=== PATIENT | female | born 1975 | race Caucasian/White ===

== ENCOUNTER 2016-07-09 13:32 | Emergency (ER) | payer OTHER ==
[~2016-07-09] VITALS: Ht 157.5 cm; Wt 76.7 kg
[~2016-07-09 13:32] MED LIST: ALBU1NEB10 NEB; ALBUAER2 INH; IMT100 PO; MONT1TAB3 PO; TRAZ50TA35 PO
[2016-07-09 13:44] VITALS: TEMP 37.2; Ht 157.5 cm; Wt 76.7 kg
[2016-07-09] MEDS ORDERED: OXYC1TAB3 PO (14:19)
[2016-07-09 14:30] VITALS: BP 138/78; PULSE 83; O2SAT 96
--- NOTE | 2016-07-09 19:21 | EMERGENCY ROOM VISIT NOTE ---
History First contact with patient: 14:13 Chief Complaint: DENTAL PAIN Stated Complaint: TOOTHACHE Nursing Triage Summary: pt states cracked tooth on right upper. right facial pain History of Present Illness The patient is a 41 year old female who presents to the Emergency Room with complaints of a cracked tooth that happened on Tyra, or 2 days ago. The patient reports that she was eating caramel corn. The patient reports that she has an appointment scheduled to see a dentist on Saturday. She tried to call her family doctor's weekend clinic and the [facility], and was told that they had a long wait time. She can no longer tolerate the discomfort, and presents to the emergency department for further evaluation. She rates her pain a 7 out of 10. Review of Systems 10 system review was performed and was negative except for pertinent positives and negatives as indicated in history of present illness Past Medical/Surgical History Medical Problems: (1) ASTHMA, UNSPECIFIED, W (ACUTE) EXACERBATION (2) History of cholecystectomy (3) HX-PENICILLIN ALLERGY (4) HX-SULFONAMIDES ALLERGY (5) Kidney stone (6) OVARIAN CYST NEC/NOS (7) TOBACCO USE DISORDER Family History Unremarkable Social History Smoking Status: Current Every Day Smoker Alcohol Use: none Drug Use: none Marital Status: in relationship Occupation Status: unemployed Current/Historical Medications Scheduled Clonazepam (Klonopin), 1 MG PO AMPM Fluticasone Prop/Salmeterol (Advair Diskus 500/50 60 Dose), 1 PUFF INH Q12 Montelukast Sodium (Singulair), 10 MG PO DAILY Scheduled PRN Albuterol (Ventolin), 2 PUFFS INH QID PRN for SOB/Wheezing Albuterol Sulf (Albuterol Sulfate 0.083% For Inh), 3 ML NEB QID PRN for SOB/ Wheezing Oxycodone Ir (Roxicodone Ir), 1-2 TAB PO Q4H PRN for Pain Sumatriptan Succinate (Imitrex Nasal [place]), 1 SPRAY NA UD PRN for Migraine Sumatriptan Succinate (Imitrex), 100 MG PO UD PRN for Migraine Allergies Coded Allergies: Nitrofurantoin (Verified Allergy, Intermediate, HIVES, 07/09/16) Doxycycline (Verified Allergy, Mild, 07/09/16) Sulfa Drugs (Verified Allergy, Mild, 07/09/16) Amoxicillin (Verified Allergy, Unknown, THROAT SWELLS, 07/09/16) Morphine (Verified Allergy, Unknown, bradycardia, 07/09/16) Penicillins (Verified Allergy, Unknown, AMOXIL, 07/09/16) Tramadol (Verified Allergy, Unknown, Triggers migraine., 07/09/16) Reported by PT. Gabapentin (Verified Adverse Reaction, Unknown, Nausea., 07/09/16) Reported by PT. Physical Exam Vital Signs Date Time Temp Pulse Resp B/P Pulse Ox O2 Delivery O2 Flow Rate FiO2 07/09/16 14:30 83 18 138/78 96 07/09/16 13:44 37.2 103 18 145/86 97 Room Air Pain Rating (0-10): 5.0 Physical Exam CONSTITUTIONAL: Healthy and well nourished. Alert and oriented X 3 with positive affect. HEENT: Normocephalic, atraumatic. Pupils equal, round and reactive. No facial edema noted. OROPHARYNX: The patient has poor dentition. I am unable to visualize a dental fracture of the right upper molars. There is no gingival erythema, fluctuance or pointing. No evidence for Jhon's angina or retropharyngeal abscess. NECK: Full active range of motion without discomfort. INTEGUMENTARY: No rash or other significant dermatologic conditions noted. NEUROLOGIC: Facial sensations are intact. Medical Decision & Procedures ED Course Patient history and physical exam were performed. The patient was dispensed a dental wax, and received a prescription for OxyIR 5 mg. She was encouraged to alternate ibuprofen and Tylenol for baseline pain relief. The patient was advised that she must follow-up with a dentist for further definitive treatment. She may also need to contact her PCP as needed for further pain management until she can see her dentist. The patient was advised that the emergency department does not provide dental services, referrals or ongoing prescription management. The patient was happy with plan of care, voiced understanding of all discharge instructions, and rated her pain a 5 out of 10 at the time of discharge. [place] Drug Monitoring Program Search Results: patient reviewed within database, no issues identified Impression Primary Impression: Pain, dental Departure Information Dispostion Home / Self-Care Condition GOOD Prescriptions Oxycodone Ir (Roxicodone Ir) 5 Mg Tab 1-2 TAB PO Q4H Y for Pain, #24 TAB For Initial Treatment Prov: Darryn Dillard PA 07/09/16 Forms HOME CARE DOCUMENTATION FORM, IMPORTANT VISIT INFORMATION Patient Instructions A Signature Page, [facility] Additional Instructions Use dental wax to cover the tooth and exposed nerve. Ibuprofen 800 mg and/or Tylenol 1000 mg every 8 hours. You may also alternate these medications for more effective pain relief: Ibuprofen --4 HRS--> Tylenol --4 HRS--> ibuprofen --4 HRS--> Tylenol .... OxyIR if needed for worse pain. Soft food/liquid diet. YOU MUST SEE A DENTIST FOR DEFINITIVE CARE. THE EMERGENCY DEPARTMENT DOES NOT PROVIDE DENTAL SERVICES, REFERRALS OR CHRONIC DENTAL PAIN MANAGEMENT. YOU MAY ALSO CALL YOUR FAMILY DOCTOR FOR PAIN MANAGEMENT UNTIL YOU SEE YOUR DENTIST.
[2017-03-30] MEDS ORDERED: ADVIN50/60 INH (12:48)
[2017-03-30] MEDS ORDERED: TRAZ50TA35 PO (15:50)
[2017-03-30] MEDS ORDERED: VALA1TAB31 PO (15:50)
[2017-03-30] MEDS ORDERED: VNTHFA/IN INH (15:50)
[2017-03-30] MEDS ORDERED: ACET-1256 PO (16:00)
[2017-03-30] MEDS ORDERED: IBUP-103 PO (16:00)
[2017-03-30] MEDS ORDERED: ALBINS/ NEB (16:00)
== END 2016-07-09 14:35 | disposition home or self-care (01) ==
LOC: C.EDB 13:34 → C.EDA 14:35
DX: K08.89 Other specified disorders of teeth and supporting structures (principal); F17.210 Nicotine dependence, cigarettes, uncomplicated; Z79.899 Other long term (current) drug therapy

== ENCOUNTER 2016-07-27 15:27 | Emergency (ER) | payer OTHER ==
[~2016-07-27] VITALS: Ht 157.5 cm; Wt 78.1 kg
[~2016-07-27 15:27] MED LIST changes: +OXYC1TAB3 PO; -TRAZ50TA35 PO
[2016-07-27 15:28] VITALS: BP 149/99; PULSE 76; TEMP 36.7; O2SAT 99; Ht 157.5 cm; Wt 78.1 kg
--- NOTE | 2016-07-27 15:54 | EMERGENCY ROOM VISIT NOTE ---
ED Visit Note First contact with patient: 15:32 CHIEF COMPLAINT: Toothache HISTORY OF PRESENT ILLNESS: This 41-year-old female patient presented to the emergency department ambulatory with a progressive toothache for past several weeks. The patient reports that she has several issues with her teeth. She saw a dentist today and was told that she needs a root canal and other work done on her teeth. She was prescribed clindamycin for infection. She states that the dentist told her she was not able to prescribe her any narcotics with the license that she had. The patient reports that most of her pain is in the right upper molars. She states that there is an exposed nerve and one of the teeth. She has an appointment to have the work done September 14 of this year. She 's been taking ibuprofen and Tylenol without relief. She has been to the ER previously for this pain. She reports that she does not have a primary care provider and has not followed up with anyone else regarding this pain. Denies facial swelling or fever. The patient denies any discharge from the mouth. REVIEW OF SYSTEMS: A 6 system review of systems was completed with positives and pertinent negatives listed in the HPI. ALLERGIES: Amoxicillin, doxycycline, morphine, nitrofurantoin, gabapentin, tramadol, penicillins, sulfa drugs MEDICATIONS: See med list PMH: Asthma SOCIAL HISTORY: The patient lives locally. She is a smoker. She denies alcohol use. PHYSICAL EXAM: Vitals are noted on the nurse's note and reviewed by myself. Vital signs stable. Temperature 36.7C orally. GENERAL: This is a 41-year-old female, in no acute distress, nondiaphoretic, well-developed well-nourished. Mouth: There is generalized poor dental hygiene with several dental caries, especially in the right upper molars. No drainage or signs of abscess. There is no significant erythema, edema or exudate. There is no facial swelling, cervical or submandibular lymphadenopathy. EARS: External auditory canals clear , tympanic membranes pearly sharma without erythema or effusion bilaterally. ED COURSE: The patient was evaluated as above. She does have several dental caries and brought with her records from the dentist that show she does have an appointment in 2 months. The patient initially told me that she did not have a primary care provider and did not have anyone else to go to for her pain. However, the [place] prescription drug monitoring program shows that the patient received a prescription for 21 tablets of oxycodone on 07/10/16, the day after she was seen here and prescribed 24 tablets of oxycodone. I did question the patient about this and she said that this was her primary care provider's office, but they stated that they would not give her any more narcotics for this. I Informed the patient that I am not comfortable prescribing any more narcotic medications for this problem. She was instructed to follow-up with her primary care provider and dentist. She was provided with dental wax. She was encouraged to take her antibiotic as prescribed. She was discharged home in good condition. DIAGNOSIS: Odontalgia Problem List Medical Problems: (1) ASTHMA, UNSPECIFIED, W (ACUTE) EXACERBATION Status: Chronic (2) History of cholecystectomy Status: Resolved (3) HX-PENICILLIN ALLERGY Status: Chronic (4) HX-SULFONAMIDES ALLERGY Status: Chronic (5) Kidney stone Status: Chronic (6) OVARIAN CYST NEC/NOS Status: Chronic (7) TOBACCO USE DISORDER Status: Chronic Current/Historical Medications Scheduled Albuterol Hfa (Ventolin Hfa), 2 PUFFS INH QID Clonazepam (Klonopin), 2 MG PO HS Fluticasone Prop/Salmeterol (Advair Diskus 500/50 60 Dose), 1 PUFF INH Q12 Trazodone Hcl (Trazodone), 50 MG PO HS Valacyclovir Hcl (Valtrex), 2 GM PO UD Scheduled PRN Albuterol Sulf (Albuterol Sulfate 0.083% For Inh), 3 ML NEB QID PRN for SOB/ Wheezing Sumatriptan Succinate (Imitrex Nasal [place]), 1 SPRAY NA UD PRN for Migraine Allergies Coded Allergies: Nitrofurantoin (Verified Allergy, Intermediate, HIVES, 07/09/16) Doxycycline (Verified Allergy, Mild, 07/09/16) Sulfa Drugs (Verified Allergy, Mild, 07/09/16) Amoxicillin (Verified Allergy, Unknown, THROAT SWELLS, 07/09/16) Morphine (Verified Allergy, Unknown, bradycardia, 07/09/16) Penicillins (Verified Allergy, Unknown, AMOXIL, 07/09/16) Tramadol (Verified Allergy, Unknown, Triggers migraine., 07/09/16) Reported by PT. Gabapentin (Verified Adverse Reaction, Unknown, Nausea., 07/09/16) Reported by PT. Vital Signs Date Time Temp Pulse Resp B/P Pulse Ox O2 Delivery O2 Flow Rate FiO2 07/27/16 15:28 36.7 76 18 149/99 99 Room Air Departure Information Impression Primary Impression: Dental caries Dispostion Home / Self-Care Condition GOOD Referrals No Doctor, Assigned (PCP) Patient Instructions My [facility] Additional Instructions You have been treated in the Emergency Department for Dental Pain. Take clindamycin as prescribed. For pain control, you can use the following dikk-ddq-sxismzf medicines (if >12 yo): - Regular strength (325mg/tab) Tylenol (acetaminophen) 2 tabs every 4-6 hours as needed. Do not exceed 12 tablets in a 24 hour period. Avoid taking more than 4 grams (4000 mg) of Tylenol per day. This includes any other sources of acetaminophen you may take on a regular basis. - Regular strength (200 mg/tab) Advil (ibuprofen) 1-2 tabs every 4-6 hours as needed. Do not exceed a dose of 3200 mg per day. Refrain from smoking cigarettes or using chewing tobacco until you have been evaluated by your dentist. Keeping beverages lukewarm and consuming soft foods can decrease your pain. Warm compresses over the affected area may offer some relief. You MUST seek evaluation of your dental pain by a dentist following your visit to the Emergency Department. The Emergency Department is not capable of treating dental issues long-term. You should call your dentist as soon as possible to make an appointment for evaluation of your dental pain. Return to the emergency department if you develop the following symptoms despite treatment course outlined above: fever, intractable pain, increased redness, swelling, or purulent discharge.
[2016-07-27] MEDS ORDERED: SUMA20SP (21:57)
[2017-03-30] MEDS ORDERED: ADVIN50/60 INH (12:48)
[2017-03-30] MEDS ORDERED: TRAZ50TA35 PO (15:50)
[2017-03-30] MEDS ORDERED: VNTHFA/IN INH (15:50)
[2017-03-30] MEDS ORDERED: VALA1TAB31 PO (15:50)
[2017-03-30] MEDS ORDERED: ACET-1256 PO (16:00)
[2017-03-30] MEDS ORDERED: ALBINS/ NEB (16:00)
[2017-03-30] MEDS ORDERED: IBUP-103 PO (16:00)
== END 2016-07-27 16:04 | disposition home or self-care (01) ==
LOC: C.EDB 15:27 → C.EDD 16:04
DX: K02.9 Dental caries, unspecified (principal); J45.909 Unspecified asthma, uncomplicated; Z88.0 Allergy status to penicillin; Z88.1 Allergy status to other antibiotic agents; Z88.2 Allergy status to sulfonamides; Z88.5 Allergy status to narcotic agent; Z90.49 Acquired absence of other specified parts of digestive tract; F17.200 Nicotine dependence, unspecified, uncomplicated; Z87.442 Personal history of urinary calculi

== ENCOUNTER 2016-10-26 00:28 | Emergency (ER) | payer OTHER ==
[~2016-10-26] VITALS: Ht 157.5 cm; Wt 76.0 kg
[~2016-10-26 00:28] MED LIST changes: -ALBU1NEB10 NEB; -ALBUAER2 INH; -IMT100 PO; -MONT1TAB3 PO; -OXYC1TAB3 PO; +SUMA20SP
[2016-10-26 00:42] VITALS: TEMP 36.7; Ht 157.5 cm; Wt 76.0 kg
[2016-10-26] MEDS ORDERED: CLIN300C2 PO (01:37)
--- NOTE | 2016-10-26 01:37 | EMERGENCY ROOM VISIT NOTE ---
ED Visit Note First contact with patient: 00:53 Chief Complaint: Dental Pain History of Present Illness: This patient is a 41-year-old female who presents to the Emergency Department this morning for evaluation of their dental pain. Patient believes the pain is arising from RIGHT incisor tooth which they report developed 4 days ago. They describe the pain as constant and they now report radiation face. They have tried asgq-nic-nrcvnca medications for the pain minimal relief of symptoms. They report increased pain with eating and drinking. Patient rates her current discomfort as an 8 /10. The patient has a dentist appointment scheduled for Saturday. Patient currently denies any associated fevers, chills, visual disturbances, neck pain/stiffness, or trismus. They report no drainage from the tooth. Patient is a current smoker. Medications: Reviewed and discussed with the patient. Allergies: Amoxicillin, doxycycline, gabapentin, morphine, Macrobid, penicillins , sulfa drugs, tramadol PMH: No pertinent past medical history. SHx: Patient is a 41-year-old female who lives locally. ROS: All pertinent positive and negative review of systems are appropriately documented in the History of Present Illness. Physical Exam: VITAL SIGNS Vital signs and nursing notes were reviewed. GENERAL 41 -year-old female appearing her stated age who is in no acute distress. Communicates well with provider and answers questions appropriately. HEAD Normocephalic, Atraumatic. EYES PERRL with EOMI bilaterally. EARS No deformities of external structures noted on gross examination bilaterally. No pain elicited with palpation of the tragus bilaterally. External auditory canals without discharge or otorrhea. Tympanic membranes pearly sharma without retraction or bulging. NOSE Midline and without cyanosis. No epistaxis or purulent drainage noted. Septum midline without deviation or septal hematoma noted. MOUTH/OROPHARYNX Without perioral cyanosis. Buccal mucosa pink and moist and without leukoplakia. Tongue midline with equal elevation of palate bilaterally. No tonsillar hypertrophy, erythema, or exudates noted. Poor dentition noted. The RIGHT incisor tooth is carious. Surrounding gums erythematous and edematous without discharge. Exquisite tenderness to palpation of affected tooth. No trismus. No fluctuance to palpation or active drainage appreciated. No sublingual edema. NECK Neck with FROM. Supple to palpation. No lymphadenopathy noted. No nuchal rigidity. ED Course: Patient was seen and evaluated by myself. It was discussed with the patient at great length that the Emergency Department is not an appropriate place for continued treatment of dental pain issues. Patient acknowledges understanding. Patient was provided a homepack of Cleocin and [place] while in the Emergency Department. Patient will be placed on a course of Cleocin . Patient was educated on worrisome symptoms for return visit to the Emergency Department. Patient was discharged to home afebrile and in good condition. Impression: Odontalgia Discharge Instructions: You have been treated in the Emergency Department for Dental Pain. You have been provided [place] to be used for pain control. This is a narcotic medication. You cannot drive or consume alcohol while on this medicine. This medicine should only be used for pain that cannot be controlled with over-the- counter pain medicines. You were prescribed Cleocin to be taken as prescribed. This is an antibiotic. All antibiotics have the potential to cause diarrhea. Stop this medication and contact a medical provider if you were to develop any significant adverse side effects including: wheezing, shortness of breath, passing out, vomiting, or a diffuse rash. Always take antibiotics as directed and COMPLETE the ENTIRE course regardless of the improvement of your symptoms. For pain control, you can use the following gval-sch-mxmwhkp medicines (if >12 yo): - Regular strength (325mg/tab) Tylenol (acetaminophen) 2 tabs every 4-6 hours as needed. Do not exceed 12 tablets in a 24 hour period. Avoid taking more than 4 grams (4000 mg) of Tylenol per day. This includes any other sources of acetaminophen you may take on a regular basis. - Regular strength (200 mg/tab) Advil (ibuprofen) 1-2 tabs every 4-6 hours as needed. Do not exceed a dose of 3200 mg per day. Refrain from smoking cigarettes or using chewing tobacco until you have been evaluated by your dentist. Keeping beverages lukewarm and consuming soft foods can decrease your pain. Warm compresses over the affected area may offer some relief. You MUST seek evaluation of your dental pain by a dentist following your visit to the Emergency Department. The Emergency Department is not capable of treating dental issues long-term. You should call your dentist as soon as possible to make an appointment for evaluation of your dental pain. Return to the emergency department if you develop the following symptoms despite treatment course outlined above: fever, intractable pain, increased redness, swelling, or purulent discharge. Problem List Medical Problems: (1) ASTHMA, UNSPECIFIED, W (ACUTE) EXACERBATION Status: Chronic (2) History of cholecystectomy Status: Resolved (3) HX-PENICILLIN ALLERGY Status: Chronic (4) HX-SULFONAMIDES ALLERGY Status: Chronic (5) Kidney stone Status: Chronic (6) OVARIAN CYST NEC/NOS Status: Chronic (7) TOBACCO USE DISORDER Status: Chronic Current/Historical Medications Scheduled Albuterol Hfa (Ventolin Hfa), 2 PUFFS INH QID Clindamycin Hcl (Cleocin), 300 MG PO QID Clonazepam (Klonopin), 2 MG PO HS Fluticasone Prop/Salmeterol (Advair Diskus 500/50 60 Dose), 1 PUFF INH Q12 Trazodone Hcl (Trazodone), 50 MG PO HS Valacyclovir Hcl (Valtrex), 2 GM PO UD Scheduled PRN Acetaminophen (Tylenol), 1,000 MG PO Q4H PRN for Pain Albuterol Sulf (Proventil 0.083% 2.5MG/3ML), 2.5 MG INH QID PRN for SOB/Wheezing Ibuprofen Tab (Advil), 400-800 MG PO Q4H PRN for Pain Sumatriptan Succinate (Imitrex Nasal [place]), 1 SPRAY NA UD PRN for Migraine Allergies Coded Allergies: Nitrofurantoin (Verified Allergy, Intermediate, HIVES, 10/26/16) Doxycycline (Verified Allergy, Mild, 10/26/16) Sulfa Drugs (Verified Allergy, Mild, 10/26/16) Amoxicillin (Verified Allergy, Unknown, THROAT SWELLS, 10/26/16) Morphine (Verified Allergy, Unknown, bradycardia, 10/26/16) Penicillins (Verified Allergy, Unknown, AMOXIL, 10/26/16) Tramadol (Verified Allergy, Unknown, Triggers migraine., 10/26/16) Reported by PT. Gabapentin (Verified Adverse Reaction, Unknown, Nausea., 10/26/16) Reported by PT. Vital Signs Date Time Temp Pulse Resp B/P Pulse Ox O2 Delivery O2 Flow Rate FiO2 10/26/16 01:45 78 18 124/82 94 10/26/16 00:42 36.7 77 18 131/90 97 Room Air Medications Administered Medications (Trade) Dose Ordered Sig/Storm Route Start Time Stop Time Status Last Admin Dose Admin Clindamycin HCl (Cleocin 150MG Home Pack) 1 homepack UD ONCE PO 10/26/16 01:45 10/26/16 01:46 DC 10/26/16 01:41 1 HOMEPACK Acetaminophen/ Hydrocodone Bitart ([place] 5/325mg Home Pack) 1 homepack UD ONCE PO 10/26/16 01:45 10/26/16 01:46 DC 10/26/16 01:41 1 HOMEPACK Departure Information Impression Primary Impression: Odontalgia Dispostion Home / Self-Care Condition GOOD Prescriptions Clindamycin Hcl (CLEOCIN) 300 Mg Cap 300 MG PO QID for 10 Days, #40 CAP Prov: Amandeep Eason PA-C 10/26/16 Referrals Wilfredo Oswald, D.OHoda (PCP) Patient Instructions My [facility] Additional Instructions You have been treated in the Emergency Department for Dental Pain. You have been provided [place] to be used for pain control. This is a narcotic medication. You cannot drive or consume alcohol while on this medicine. This medicine should only be used for pain that cannot be controlled with over-the- counter pain medicines. You were prescribed Cleocin to be taken as prescribed. This is an antibiotic. All antibiotics have the potential to cause diarrhea. Stop this medication and contact a medical provider if you were to develop any significant adverse side effects including: wheezing, shortness of breath, passing out, vomiting, or a diffuse rash. Always take antibiotics as directed and COMPLETE the ENTIRE course regardless of the improvement of your symptoms. For pain control, you can use the following rehb-hde-ajxwdbe medicines (if >12 yo): - Regular strength (325mg/tab) Tylenol (acetaminophen) 2 tabs every 4-6 hours as needed. Do not exceed 12 tablets in a 24 hour period. Avoid taking more than 4 grams (4000 mg) of Tylenol per day. This includes any other sources of acetaminophen you may take on a regular basis. - Regular strength (200 mg/tab) Advil (ibuprofen) 1-2 tabs every 4-6 hours as needed. Do not exceed a dose of 3200 mg per day. Refrain from smoking cigarettes or using chewing tobacco until you have been evaluated by your dentist. Keeping beverages lukewarm and consuming soft foods can decrease your pain. Warm compresses over the affected area may offer some relief. You MUST seek evaluation of your dental pain by a dentist following your visit to the Emergency Department. The Emergency Department is not capable of treating dental issues long-term. You should call your dentist as soon as possible to make an appointment for evaluation of your dental pain. Return to the emergency department if you develop the following symptoms despite treatment course outlined above: fever, intractable pain, increased redness, swelling, or purulent discharge.
[2016-10-26 01:45] VITALS: BP 124/82; PULSE 78; O2SAT 94
[2016-10-26] MEDS ORDERED: CLINDAMYCIN 150MG HOME PACK PO ONE (01:45)
[2016-10-26] MEDS ORDERED: NORCO 5/325MG HOME PACK PO ONE (01:45)
[2017-03-30] MEDS ORDERED: ADVIN50/60 INH (12:48)
[2017-03-30] MEDS ORDERED: TRAZ50TA35 PO (15:50)
[2017-03-30] MEDS ORDERED: VNTHFA/IN INH (15:50)
[2017-03-30] MEDS ORDERED: VALA1TAB31 PO (15:50)
[2017-03-30] MEDS ORDERED: ACET-1256 PO (16:00)
[2017-03-30] MEDS ORDERED: IBUP-103 PO (16:00)
[2017-03-30] MEDS ORDERED: ALBINS/ NEB (16:00)
== END 2016-10-26 01:47 | disposition home or self-care (01) ==
LOC: C.EDB 00:29 → C.EDA 01:47
DX: K08.89 Other specified disorders of teeth and supporting structures (principal); J45.909 Unspecified asthma, uncomplicated; Z87.442 Personal history of urinary calculi; F17.210 Nicotine dependence, cigarettes, uncomplicated; Z79.899 Other long term (current) drug therapy

== ENCOUNTER 2017-01-10 22:42 | Emergency (ER) | payer OTHER ==
[~2017-01-10] VITALS: Ht 157.5 cm; Wt 71.2 kg
[2017-01-10 22:49] VITALS: TEMP 36.7; Ht 157.5 cm; Wt 71.2 kg
[2017-01-10] MEDS ORDERED: IMTIN5 (23:11)
[2017-01-10] MEDS ORDERED: TYLENOL #3 HOME PACK PO ONE (23:15)
[2017-01-10] MEDS ORDERED: CLINDAMYCIN 150MG HOME PACK PO ONE (23:15)
[2017-01-10 23:26] VITALS: BP 119/76; PULSE 74; O2SAT 98
[2017-01-10] MEDS ORDERED: CLIN300C2 PO (23:30)
--- NOTE | 2017-01-10 23:32 | EMERGENCY ROOM VISIT NOTE ---
ED Visit Note First contact with patient: 23:03 CHIEF COMPLAINT: Toothache HISTORY OF PRESENT ILLNESS: This 42-year-old female patient presented to the emergency department with her significant other with a progressive toothache for past 6-7 months. The patient believes it is coming from her right upper molar. The pain is now steady and severe and radiates to the face. This pain began worsening last night. She states she is now feeling a bump above the [place] in the gum. The patient states she needs the tooth extracted, however her insurance does not pay for extractions. She is working on saving money to have the tooth extracted. The patient not have a dentist appointment set up because she states she did not receive a phone call back from her dentist today. They rate their pain a 7/10 and the ibuprofen and Tylenol they have been taking has not relieved the pain. Does complain of facial swelling and low -grade fever today of 100.2F. The patient denies any discharge from the mouth. REVIEW OF SYSTEMS: A 6 system review of systems was completed with positives and pertinent negatives listed in the HPI. ALLERGIES: Amoxicillin, doxycycline, morphine, nitrofurantoin, gabapentin, tramadol, penicillin, sulfa MEDICATIONS: Trazodone, clonazepam, Advair, Imitrex nasal spray, Valtrex, Ventolin HFA, Proventil PMH: Anxiety, cold sores, migraines, asthma, sleep disturbance SOCIAL HISTORY: Lives locally with her family. She admits to smoking 2 packs cigarettes per day. She denies alcohol or drug use. PHYSICAL EXAM: Vitals are noted on the nurse's note and reviewed by myself. Vital signs stable. Temperature 36.7C orally. GENERAL: 42-year-old female, in no acute distress, nondiaphoretic, well-developed well-nourished. Mouth: The #3 tooth is very carious and the gum is swollen and tender around it, without any discharge or signs of an abscess, however there is a pea-sized lump just superior to this tooth. The remainder of the pharynx and tonsils are without erythema, edema, or exudate. The airway is patent. There is no facial swelling, cervical or submandibular lymphadenopathy. The patient appears uncomfortable and in pain. The patient has overall poor dental hygiene. EARS: External auditory canals clear, tympanic membranes pearly sharma without erythema or effusion bilaterally. ED COURSE: The patient was seen and evaluated as above. She was provided with home packs of antibiotics and pain medication, and was strongly encouraged to follow up with her dentist for further evaluation and treatment. The patient was discharged home in good condition. I did consult with PDMP and noted no concerns. DIFFERENTIAL DIAGNOSIS: Odontalgia, dental abscess, dental caries, sepsis, and others DIAGNOSIS: Odontalgia DISCHARGE INSTRUCTIONS & TREATMENT: You have been treated in the Emergency Department for Dental Pain. You have been prescribed Tylenol #3 to be used for pain control. This is a narcotic medication. You cannot drive or consume alcohol while on this medicine. This medicine should only be used for pain that cannot be controlled with fdog-ang-faajrlq pain medicines. You were prescribed clindamycin to be taken 4 times daily. This is an antibiotic. All antibiotics have the potential to cause diarrhea. Stop this medication and contact a medical provider if you were to develop any significant adverse side effects including: wheezing, shortness of breath, passing out, vomiting, or a diffuse rash. Always take antibiotics as directed and COMPLETE the ENTIRE course regardless of the improvement of your symptoms. - You should take the first dose of the home pack this evening. You should follow that up with your second dose at approximately 5:00 in the morning. You should be sure to fill your prescription by 11 AM tomorrow morning so you can take the third dose of medication at that time For pain control, you can use the following deta-azk-zxslusl medicines (if >12 yo): - Regular strength (325mg/tab) Tylenol (acetaminophen) 2 tabs every 4-6 hours as needed. Do not exceed 12 tablets in a 24 hour period. Avoid taking more than 4 grams (4000 mg) of Tylenol per day. This includes any other sources of acetaminophen you may take on a regular basis. - Regular strength (200 mg/tab) Advil (ibuprofen) 1-2 tabs every 4-6 hours as needed. Do not exceed a dose of 3200 mg per day. Refrain from smoking cigarettes or using chewing tobacco until you have been evaluated by your dentist. Keeping beverages lukewarm and consuming soft foods can decrease your pain. Warm compresses over the affected area may offer some relief. You MUST seek evaluation of your dental pain by a dentist following your visit to the Emergency Department. The Emergency Department is not capable of treating dental issues long-term. You should call your dentist as soon as possible to make an appointment for evaluation of your dental pain. Return to the emergency department if you develop the following symptoms despite treatment course outlined above: fever, intractable pain, increased redness, swelling, or purulent discharge. Problem List Medical Problems: (1) ASTHMA, UNSPECIFIED, W (ACUTE) EXACERBATION Status: Chronic (2) History of cholecystectomy Status: Resolved (3) HX-PENICILLIN ALLERGY Status: Chronic (4) HX-SULFONAMIDES ALLERGY Status: Chronic (5) Kidney stone Status: Chronic (6) OVARIAN CYST NEC/NOS Status: Chronic (7) TOBACCO USE DISORDER Status: Chronic Current/Historical Medications Scheduled Albuterol Hfa (Ventolin Hfa), 2 PUFFS INH QID Clindamycin Hcl (Cleocin), 300 MG PO QID Clonazepam (Klonopin), 2 MG PO HS Fluticasone Prop/Salmeterol (Advair Diskus 500/50 60 Dose), 1 PUFF INH Q12 Trazodone Hcl (Trazodone), 50 MG PO HS Valacyclovir Hcl (Valtrex), 2 GM PO UD Scheduled PRN Acetaminophen (Tylenol), 1,000 MG PO Q4H PRN for Pain Albuterol Sulf (Proventil 0.083% 2.5MG/3ML), 2.5 MG INH QID PRN for SOB/Wheezing Ibuprofen Tab (Advil), 400-800 MG PO Q4H PRN for Pain Sumatriptan Succinate (Imitrex Nasal [place]), 1 SPRAY NA DIRECTED PRN for Migraine Allergies Coded Allergies: Nitrofurantoin (Verified Allergy, Intermediate, HIVES, 01/10/17) Doxycycline (Verified Allergy, Mild, 01/10/17) Iodine (Verified Allergy, Mild, Rash, 01/10/17) Sulfa Drugs (Verified Allergy, Mild, 01/10/17) Amoxicillin (Verified Allergy, Unknown, THROAT SWELLS, 01/10/17) Morphine (Verified Allergy, Unknown, bradycardia, 01/10/17) Penicillins (Verified Allergy, Unknown, AMOXIL, 01/10/17) Tramadol (Verified Allergy, Unknown, Triggers migraine., 01/10/17) Reported by PT. Gabapentin (Verified Adverse Reaction, Unknown, Nausea., 01/10/17) Reported by PT. Vital Signs Date Time Temp Pulse Resp B/P (MAP) Pulse Ox O2 Delivery O2 Flow Rate FiO2 01/10/17 23:26 74 16 119/76 98 01/10/17 22:49 36.7 79 18 130/79 98 Room Air Medications Administered Medications (Trade) Dose Ordered Sig/Storm Route Start Time Stop Time Status Last Admin Dose Admin Acetaminophen/ Codeine Phosphate (TYLENOL W/ CODEINE #3 Home Pack) 1 homepack UD ONCE PO 01/10/17 23:15 01/10/17 23:20 DC 01/10/17 23:27 1 HOMEPACK Clindamycin HCl (Cleocin 150MG Home Pack) 1 homepack UD ONCE PO 01/10/17 23:15 01/10/17 23:20 DC 01/10/17 23:27 1 HOMEPACK Departure Information Impression Primary Impression: Odontalgia Dispostion Home / Self-Care Condition GOOD Prescriptions Clindamycin Hcl (CLEOCIN) 300 Mg Cap 300 MG PO QID for 10 Days, #40 CAP Prov: Genevieve Gamez PA-C 01/10/17 Referrals Wilfredo Oswald, D.OHoda (PCP) Patient Instructions [facility] Additional Instructions You have been treated in the Emergency Department for Dental Pain. You have been prescribed Tylenol #3 to be used for pain control. This is a narcotic medication. You cannot drive or consume alcohol while on this medicine. This medicine should only be used for pain that cannot be controlled with xoaa-jfn-arfduxc pain medicines. You were prescribed clindamycin to be taken 4 times daily. This is an antibiotic. All antibiotics have the potential to cause diarrhea. Stop this medication and contact a medical provider if you were to develop any significant adverse side effects including: wheezing, shortness of breath, passing out, vomiting, or a diffuse rash. Always take antibiotics as directed and COMPLETE the ENTIRE course regardless of the improvement of your symptoms. - You should take the first dose of the home pack this evening. You should follow that up with your second dose at approximately 5:00 in the morning. You should be sure to fill your prescription by 11 AM tomorrow morning so you can take the third dose of medication at that time For pain control, you can use the following bbwl-fxr-mgayvmw medicines (if >12 yo): - Regular strength (325mg/tab) Tylenol (acetaminophen) 2 tabs every 4-6 hours as needed. Do not exceed 12 tablets in a 24 hour period. Avoid taking more than 4 grams (4000 mg) of Tylenol per day. This includes any other sources of acetaminophen you may take on a regular basis. - Regular strength (200 mg/tab) Advil (ibuprofen) 1-2 tabs every 4-6 hours as needed. Do not exceed a dose of 3200 mg per day. Refrain from smoking cigarettes or using chewing tobacco until you have been evaluated by your dentist. Keeping beverages lukewarm and consuming soft foods can decrease your pain. Warm compresses over the affected area may offer some relief. You MUST seek evaluation of your dental pain by a dentist following your visit to the Emergency Department. The Emergency Department is not capable of treating dental issues long-term. You should call your dentist as soon as possible to make an appointment for evaluation of your dental pain. Return to the emergency department if you develop the following symptoms despite treatment course outlined above: fever, intractable pain, increased redness, swelling, or purulent discharge.
[2017-03-30] MEDS ORDERED: ADVIN50/60 INH (12:48)
[2017-03-30] MEDS ORDERED: VNTHFA/IN INH (15:50)
[2017-03-30] MEDS ORDERED: VALA1TAB31 PO (15:50)
[2017-03-30] MEDS ORDERED: TRAZ50TA35 PO (15:50)
[2017-03-30] MEDS ORDERED: ALBINS/ NEB (16:00)
[2017-03-30] MEDS ORDERED: ACET-1256 PO (16:00)
[2017-03-30] MEDS ORDERED: IBUP-103 PO (16:00)
== END 2017-01-10 23:48 | disposition home or self-care (01) ==
LOC: C.EDB 22:42 → C.EDC 23:48
DX: K08.89 Other specified disorders of teeth and supporting structures (principal); F41.9 Anxiety disorder, unspecified; G43.909 Migraine, unspecified, not intractable, without status migrainosus; J45.909 Unspecified asthma, uncomplicated; B00.1 Herpesviral vesicular dermatitis; F17.210 Nicotine dependence, cigarettes, uncomplicated; N20.0 Calculus of kidney; N83.209 Unspecified ovarian cyst, unspecified side

== ENCOUNTER 2017-03-30 16:19 | Emergency (ER) | payer OTHER ==
[~2017-03-30] VITALS: Ht 157.5 cm; Wt 68.5 kg
[~2017-03-30 16:19] MED LIST changes: +ACET-1256 PO; +ADVIN50/60 INH; +ALBINS/ NEB; +IBUP-103 PO; +IMTIN5; -SUMA20SP; +TRAZ50TA35 PO; +VALA1TAB31 PO; +VNTHFA/IN INH
[2017-03-30 16:23] VITALS: TEMP 37.1; Ht 157.5 cm; Wt 68.5 kg
[2017-03-30] MEDS ORDERED: [UNRECOGNIZED DRUG - OTHER] (16:49)
[2017-03-30] MEDS ORDERED: CLIN300C2 PO (16:59)
[2017-03-30] MEDS ORDERED: BENZ10GE38 DT (17:00)
--- NOTE | 2017-03-30 17:01 | EMERGENCY ROOM VISIT NOTE ---
ED Visit Note First contact with patient: 16:37 CHIEF COMPLAINT: Toothache HISTORY OF PRESENT ILLNESS: This 42-year-old female patient presented to the emergency department, ambulatory, with her , with a progressive toothache for past 10 months. The symptoms have worsened over the past 1 week. The patient believes it is coming from right upper molar which remains. The patient states she has been intermittently having problems with this tooth for several months, and has seen a dentist in the past. The patient states she was told that it would cost $2000 for her to have the tooth removed or taking care of. The patient states she has been able to come up with that amount of money, so has not been able to address the dental pain yet. The patient has been seen in the emergency department several times over the past 9 months regarding the dental pain. She has been given perceptions for clindamycin for her pain, due to her allergies. The patient states the symptoms always improved with clindamycin. She states this morning, she was brushing her teeth, when she felt the abscess burst. She has had some watery drainage in her mouth since the abscess burst. The pain is steady and severe and radiates to the face. The patient does not have a dentist appointment set up. She has been told by her PCP that they would no longer prescribe her pain medication for this tooth problem. They rate their pain a 6.5/10 and the ibuprofen and Tylenol they have been taking has not relieved the pain. She does report a mild fever 101 this morning. She states the fever did improve with Tylenol. The patient denies any earache or lymph node swelling. He denies any facial swelling or pain. REVIEW OF SYSTEMS: A 6 system review of systems was completed with positives and pertinent negatives listed in the HPI. ALLERGIES: Amoxicillin, doxycycline, iodine, morphine, nitrofurantoin, gabapentin, tramadol, penicillin, sulfa MEDICATIONS: Advair, clonazepam, trazodone, Ventolin, Proventil, Tylenol, Imitrex PMH: COPD, asthma, anxiety, insomnia SOCIAL HISTORY: The patient lives locally with family. She denies drug or alcohol use. The patient does admit to smoking approximately one half packs of cigarettes per day. PHYSICAL EXAM: Vitals are noted on the nurse's note and reviewed by myself. Vital signs stable. Temperature 37.1C orally. GENERAL: This is a 42-year-old female, in no acute distress, nondiaphoretic, well-developed well-nourished. Mouth: The #3 tooth is very carious and the gum is swollen and tender around it , without signs of an abscess just superior to the tooth. There is some mild drainage. The remainder of the pharynx and tonsils are without erythema, edema , or exudate. The airway is patent. There is no facial swelling, cervical or submandibular lymphadenopathy. The patient appears uncomfortable and in pain. The patient has overall poor dental hygiene. EARS: External auditory canals clear, tympanic membranes pearly sharma without erythema or effusion bilaterally. ED COURSE: She was seen and evaluated as above. I discussed with her proper treatment for dental abscess including antibiotics. Due to the patient's allergies, she will be again placed on clindamycin. I discussed with her the risks associated with ongoing use of clindamycin including C. difficile diarrhea. I discussed with the patient that it is imperative for her to have this tooth taken care of quickly so that she does not have to be on antibiotics as frequently as she has been. I suggested that she contact the dentist out of the area, as she has been unsuccessful at finding a dentist who can treat her abscess locally for a reasonable elizondo which she can afford. After the patient dental wax and benzocaine for her pain. I advised her to use Tylenol and ibuprofen afos-yue-zrjkakm. Discharge instructions were reviewed and the patient was discharged home in good condition. DIFFERENTIAL DIAGNOSIS: Odontalgia, dental abscess, dental caries, cavity, malignancy, and others DIAGNOSIS: Periapical abscess DISCHARGE INSTRUCTIONS & TREATMENT: You have been treated in the Emergency Department for Dental Pain. You were prescribed clindamycin to be taken four times daily. This is an antibiotic. All antibiotics have the potential to cause diarrhea. Stop this medication and contact a medical provider if you were to develop any significant adverse side effects including: wheezing, shortness of breath, passing out, vomiting, or a diffuse rash. Always take antibiotics as directed and COMPLETE the ENTIRE course regardless of the improvement of your symptoms. Use benzocaine gel 4 times daily to help relieve the pain. For pain control, you can use the following wgvt-oap-mpxicys medicines (if >12 yo): Ibuprofen(Motrin, Advil) may be used for fever or pain. Use 600mg every six hours as needed. Take with food. Avoid using more than 2400mg in a 24 hour period. Do not use 2400mg per day for more than three consecutive days without physician direction. Prolonged inappropriate use can lead to stomach upset or ulcers. (AND/OR) Acetaminophen(Tylenol) may be used for fever or pain. Use 1000mg every six hours as needed. Avoid using more than 4000mg in a 24 hour period. Refrain from smoking cigarettes or using chewing tobacco until you have been evaluated by your dentist. Keeping beverages lukewarm and consuming soft foods can decrease your pain. Warm compresses over the affected area may offer some relief. You MUST seek evaluation of your dental pain by a dentist following your visit to the Emergency Department. The Emergency Department is not capable of treating dental issues long-term. You should call your dentist as soon as possible to make an appointment for evaluation of your dental pain. As discussed, you may want to contact dental clinics out of the [facility] area for a possible cheaper elizondo to have your dental work completed. Return to the emergency department if you develop the following symptoms despite treatment course outlined above: fever, intractable pain, increased redness, swelling, or purulent discharge. Problem List Medical Problems: (1) ASTHMA, UNSPECIFIED, W (ACUTE) EXACERBATION Status: Chronic (2) History of cholecystectomy Status: Resolved (3) HX-PENICILLIN ALLERGY Status: Chronic (4) HX-SULFONAMIDES ALLERGY Status: Chronic (5) Kidney stone Status: Chronic (6) OVARIAN CYST NEC/NOS Status: Chronic (7) TOBACCO USE DISORDER Status: Chronic Current/Historical Medications Scheduled Albuterol Hfa (Ventolin Hfa), 2 PUFFS INH QID Benzocaine (Dental) (Anbesol), 1 ML DT QID Clindamycin Hcl (Cleocin), 300 MG PO QID Clonazepam (Klonopin), 2 MG PO HS Fluticasone Prop/Salmeterol (Advair Diskus 500/50 60 Dose), 1 PUFF INH Q12 Trazodone Hcl (Trazodone), 50 MG PO HS Scheduled PRN Acetaminophen (Tylenol), 1,000 MG PO Q6H PRN for Pain or Fever Albuterol Sulf (Proventil 0.083% 2.5MG/3ML), 2.5 MG NEB QID PRN for SOB/Wheezing Ibuprofen Tab (Advil), 400-800 MG PO Q6-8 HRS PRN for Pain Sumatriptan Succinate (Sumatriptan), 1 SPRAY NA UD PRN for Migraine Valacyclovir Hcl (Valtrex), 2 GM PO UD PRN for Cold Sore(s) Allergies Coded Allergies: Nitrofurantoin (Verified Allergy, Intermediate, HIVES, 01/10/17) Doxycycline (Verified Allergy, Mild, 01/10/17) Iodine (Verified Allergy, Mild, Rash, 01/10/17) Sulfa Drugs (Verified Allergy, Mild, 01/10/17) Amoxicillin (Verified Allergy, Unknown, THROAT SWELLS, 01/10/17) Morphine (Verified Allergy, Unknown, bradycardia, 01/10/17) Penicillins (Verified Allergy, Unknown, AMOXIL, 01/10/17) Tramadol (Verified Allergy, Unknown, Triggers migraine., 01/10/17) Reported by PT. Gabapentin (Verified Adverse Reaction, Unknown, Nausea., 01/10/17) Reported by PT. Vital Signs Date Time Temp Pulse Resp B/P (MAP) Pulse Ox O2 Delivery O2 Flow Rate FiO2 03/30/17 16:23 37.1 72 16 136/89 97 Room Air Departure Information Impression Primary Impression: Periapical abscess Dispostion Home / Self-Care Condition GOOD Prescriptions Benzocaine (Dental) (ANBESOL) 10 % Gel 1 ML DT QID, #1 TUBE 1 Refill Prov: Genevieve Gamez PA-C 03/30/17 Clindamycin Hcl (CLEOCIN) 300 Mg Cap 300 MG PO QID for 7 Days, #28 CAP Prov: Genevieve Gamez PA-C 03/30/17 Referrals Wilfredo Oswald, D.O. (PCP) Patient Instructions ED Abscess Dental, [facility] Additional Instructions You have been treated in the Emergency Department for Dental Pain. You were prescribed clindamycin to be taken four times daily. This is an antibiotic. All antibiotics have the potential to cause diarrhea. Stop this medication and contact a medical provider if you were to develop any significant adverse side effects including: wheezing, shortness of breath, passing out, vomiting, or a diffuse rash. Always take antibiotics as directed and COMPLETE the ENTIRE course regardless of the improvement of your symptoms. Use benzocaine gel 4 times daily to help relieve the pain. For pain control, you can use the following pttl-iyy-hrvikbs medicines (if >12 yo): Ibuprofen(Motrin, Advil) may be used for fever or pain. Use 600mg every six hours as needed. Take with food. Avoid using more than 2400mg in a 24 hour period. Do not use 2400mg per day for more than three consecutive days without physician direction. Prolonged inappropriate use can lead to stomach upset or ulcers. (AND/OR) Acetaminophen(Tylenol) may be used for fever or pain. Use 1000mg every six hours as needed. Avoid using more than 4000mg in a 24 hour period. Refrain from smoking cigarettes or using chewing tobacco until you have been evaluated by your dentist. Keeping beverages lukewarm and consuming soft foods can decrease your pain. Warm compresses over the affected area may offer some relief. You MUST seek evaluation of your dental pain by a dentist following your visit to the Emergency Department. The Emergency Department is not capable of treating dental issues long-term. You should call your dentist as soon as possible to make an appointment for evaluation of your dental pain. As discussed, you may want to contact dental clinics out of the [facility] area for a possible cheaper elizondo to have your dental work completed. Return to the emergency department if you develop the following symptoms despite treatment course outlined above: fever, intractable pain, increased redness, swelling, or purulent discharge.
[2017-03-30 17:06] VITALS: BP 136/89; PULSE 72; O2SAT 97
[2017-03-30] MEDS ORDERED: CLON2TAB3 PO (21:57)
== END 2017-03-30 17:06 | disposition home or self-care (01) ==
LOC: C.EDB 16:20 → C.EDD 17:06
DX: K04.7 Periapical abscess without sinus (principal); J44.9 Chronic obstructive pulmonary disease, unspecified; J45.909 Unspecified asthma, uncomplicated; F41.9 Anxiety disorder, unspecified; F17.200 Nicotine dependence, unspecified, uncomplicated; Z88.0 Allergy status to penicillin; Z88.1 Allergy status to other antibiotic agents; Z88.2 Allergy status to sulfonamides; Z88.3 Allergy status to other anti-infective agents; Z88.5 Allergy status to narcotic agent; Z88.8 Allergy status to other drugs, medicaments and biological substances